=== PATIENT | female | born 1955 | race Caucasian/White ===

== ENCOUNTER → 2019-12-02 | Outpatient (CLI) | payer MEDICARE, OTHER ==
[2016-03-01 14:00] VITALS: BP 112/68
[~2019-12-02] MED LIST: ASPI325T8 PO; ATOR10TA60 PO; ESCITALOPRAM OX20 MG PO; ESTR1TAB44 PO; LISI10TA2 PO; OXYC1TAB20 PO; TRAZ-118 PO
--- NOTE | 2019-12-02 15:39 | KCIC ---
MRI Lumbar Spine without contrast History: Lumbar radiculopathy, bilateral radiculopathy in the morning for a couple of weeks Technique: Multiplanar, multi sequential noncontrast MR imaging was performed of the lumbar spine. Comparison: February 02, 2016 Findings: There is again advanced degenerative disc disease at L2-3, degenerative endplate change and endplate edema at this level likely reactive/degenerative in etiology. There is minimal edema of the anterior superior corner of L1. There is moderate L4-5 degenerative disc disease somewhat greater in the interval. Conus terminates at L1-2. Lumbar vertebral body stature is maintained. There is again grade 1 anterior spondylolisthesis L4-5. There has been left sacroplasty. L1-L2: This level was not included on the axial images. Neural foramina and spinal canal are adequate. L2-L3: There is a minimal disc osteophyte complex. There is mild buckling of the ligamentum flavum and facet degenerative change. There is very mild narrowing of the right neural foramen, shallow protrusion again near the undersurface of the exiting right L2 nerve root in the neural foramen and proximal extraforaminal region. Left neural foramen is adequate. Spinal canal is overall adequate. L3-L4: There is negligible posterior bulge. There is mild buckling of the ligamentum flavum and facet hypertrophic change. Spinal canal and neural foramina are overall adequate. L4-L5: There is again moderate to severe facet degenerative change and buckling of the ligamentum flavum. There is new synovial cyst in the right lateral recess located just above the intervertebral disc space level along the margin of the ligamentum flavum measuring about 0.5 cm transverse by 0.5 cm AP by about 1 cm CC. There is indentation upon the right lateral aspect of the thecal sac, contributes to moderate to severe narrowing of the right lateral recess from posteriorly. At the intervertebral disc space level, there is also somewhat increased mild to moderate narrowing of the far lateral recesses bilaterally and mild narrowing of the central canal. There is mild partial uncovering of the posterior aspect of the disc due to spondylolisthesis. There is minimal narrowing of the left neural foramen, [id number] narrowing greater distally on the right, partially uncovered posterior disc near the undersurface of exiting right L4 nerve root in the distal neural foramen. L5-S1: There is again moderate to severe facet degenerative change and mild buckling of the ligamentum flavum. There is now a synovial cyst along the right ligamentum flavum anteriorly without impingement upon the thecal sac, measures about 0.2 cm transverse by 0.8 cm CC by 0.2 cm AP. Spinal canal is overall adequate. There is mild narrowing of the right neural foramen greater distally due to facet. Left neural foramen is adequate. Impression: 1. There is now synovial cyst above the L4-5 intervertebral disc space level in the right lateral recess contributing to moderate to severe right lateral recess stenosis. There is somewhat increased mild to moderate narrowing of the far lateral recesses bilaterally at the L4-5 vertebral disc space level, grade 1 anterior spondylolisthesis at this level due to facet degenerative change. 2. There is mild to moderate narrowing of the right L4-5 neural foramen, minimal narrowing the right at L2-3 and L5-S1 as described. 3. There is advanced L2-3 and moderate L4-5 degenerative disc disease. Electronically signed by: Lamberto Hamlin MD (12/02/2019 3:35 PM) [id number]
== END ==
LOC: KCIC MRI 12:37
PROVIDERS: ATTEND Physician Assistant Medical
DX: M51.16 Intervertebral disc disorders with radiculopathy, lumbar region (principal); M43.16 Spondylolisthesis, lumbar region; M71.38 Other bursal cyst, other site; M48.07 Spinal stenosis, lumbosacral region; M25.78 Osteophyte, vertebrae
CPT/HCPCS: 72148

== ENCOUNTER → 2020-01-10 | Outpatient (CLI) | payer MEDICARE, OTHER ==
[2016-03-01 14:00] VITALS: BP 112/68
[~2020-01-10] MED LIST changes: +CYCL10TA2 PO; +IOHEXOL 180 MG/ML 10 ML VIAL. ONE; +methylPREDNISolone ACETATE 40 MG/ML VIAL. ONE; +methylPREDNISolone ACETATE 80 MG/ML VIAL. ONE
--- NOTE | 2020-01-10 12:42 | PDOC2 ---
INITIAL PAIN CONSULT DATE OF SERVICE: DOS: DATE: 01/10/20 TIME: 12:35 CHIEF COMPLAINT: Chief Complaint: Low back and bilateral lower extremity pain HISTORY OF PRESENT ILLNESS: 64-year-old female presents with history of pain low back bilateral lower extremities for about 4 weeks now with no specific injury or accident that she is aware of but coming up over time getting worse in the low back bilateral lower extremities posterior gluteus posterior lateral thigh lateral anterior thighs anterior medial thighs posterior calves to the ankles bilaterally. Patient reports is worse with getting out of bed in the morning, changing positions standing walking more than 20 to 30 minutes with no loss of motor function lower extremities but significant fatigability again worse on the left than the right. Patient scribes pain is shooting across the back radiating to the lower extremities as described changes during the day with activity intermittent intensity but always present. 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 Patient did have an MRI scan lumbar spine compared to a film from 2016 showing synovial cyst above the L4-5 intervertebral disc space level in the right lateral recess contributing moderate to severe right lateral recess stenosis somewhat increased mild to moderate narrowing the far lateral recesses bilaterally at the L4-5 vertebral to space level grade 1 anterior spondylolist hesis at this level due to facet degenerative change with mild to moderate narrowing the right L4-5 neural foramen minimal narrowing the right at L2-3 and L5-S1 with advanced L2-3 and moderate L4-5 degenerative disc disease. Patient reports no loss of motor function again but significant fatigability of the lower extremities with activity. PAST MEDICAL HISTORY: PMH: Arthritis, hypertension, skin cancers PREVIOUS SURGERIES: Past Surgical Hx: Bilateral total hip replacement 2012, cervical laminectomy 2003, benign breast cyst removed, kyphoplasty to left sacrum CURRENT MEDICATIONS: Current Meds: Active Scripts Medications Dose Route/Sig Max Daily Dose Days Date Category Cyclobenzaprine Hcl 10 Mg Tablet 1 Tab PO TID 01/10/20 Reported Aspirin 325 Mg Tablet 1 Tab PO PRN PRN 03/01/16 Reported Oxycodone-Acetaminophen 10-325 (Oxycodone Hcl/Acetaminophen) 1 Each Tablet 1 Each PO PRN Q6HRS PRN 03/01/16 Reported Estradiol-Noreth 1-0.5 Mg Tab (Estradiol/Norethindrone Acet) 1 Each Tablet 1 Each PO HS 03/01/16 Reported Escitalopram Oxalate 20 Mg Tablet 20 Mg PO HS 03/01/16 Reported Trazodone Hcl 50 Mg Tablet 1 Tab PO QHS 03/01/16 Reported Atorvastatin Calcium 10 Mg Tablet 10 Mg PO HS 03/01/16 Reported Lisinopril 10 Mg Tablet 1 Tab PO DAILY 03/01/16 Reported ALLERGIES; Allergies: Coded Allergies: adhesive tape (Verified Allergy, Unknown, 03/01/16) FAMILY HISTORY: Family Hx: Arthritis, hypertension, heart disease SOCIAL HISTORY: Social Hx: Patient drinks alcohol very infrequently does not smoke does not use any illegal illicit or recreational drugs is lives with her spouse is currently 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 REVIEW OF SYSTEMS: ROS: Positive for those items mentioned in history of present illness, all systems are reviewed, otherwise negative, is complete full and well-documented on patient's chart PHYSICAL EXAM: VS: Blood pressure is 118/76 pulse 94 respirations 18 temperature 98.8 F height is 5 feet 3 inches weight is 166 pounds PE: PHYSICAL EXAMINATION: GENERAL: The patient is awake, alert, oriented, appropriate, very pleasant demeanor HEENT: Shows normocephalic, atraumatic. Extraocular movements are intact and symmetrical. Oral cavity: Mucous membranes moist and pink. Dentition is intact. NECK: Shows anterior throat supple without palpable lymphadenopathy noted. Swallow reflex symmetrical. CHEST: Shows normal on inspection. Breath sounds are clear bilaterally, no rales rhonchi or wheezes auscultated. HEART: Shows S1, S2 clear. No murmurs auscultated. ABDOMEN: Soft, nontender, nondistended. No palpable organomegaly is noted. No rebound or guarding demonstrated. BACK: Shows spine grossly in the midline. Normal-appearing cervical lordotic curvature. There is slightly increased thoracic kyphosis, some minor flattening of the lumbar lordotic curvature. Lumbar paraspinous muscles show symmetrical on inspection, on palpation shows some moderate tenderness diffusely throughout the upper, middle and lower distribution of the paraspinous muscles bilaterally, but without specific trigger points, without radiation of pain. The patient has good rotational motion of the lumbar spine, both laterally as well as extension and flexion without significant difficulty. No tenderness over the spinous processes, sacrum or sacroiliac regions. EXTREMITIES: Lower extremities show deep tendon reflexes 2+ in the patellar and tendo calcaneus tendons. Motor exam is 5 on a scale of 5 with right dorsiflexion, extension, quadriceps and hamstring flexion and 5/5 on the left. Peripheral pulses are 1+ posterior tibial. No peripheral edema is noted bilaterally. Lower extremities are warm and dry to touch, equal in color and appearance. Straight leg raise noted to be negative bilaterally. Gaenslen's and Sridhar's maneuvers are negative as well. The patient is able to stand, stand on her toes without difficulty or loss of balance walks with a normal- appearing gait is not appear to favor the right or left lower extremity is not using any assistive devices to ambulate. SKIN: Shows warm and dry, good turgor. No edema. No sores, rashes or bruising throughout. IMPRESSION: Impression: 64-year-old female with approximate 1 month history of pain low back bilateral lower extremities and radicular fashion as noted MRI scan lumbar spine as noted History of arthritis Hypertension Plan: Options were discussed with the patient including conservative medical management physical therapies interventional techniques he like to pursue dimensional techniques. We discussed a lumbar epidural steroid injection using descriptions as well as anatomical models to describe the procedure. Risks were discussed including but not limited to: Bleeding, infection, possibility of epidural hematoma and subsequent neurological compromise, dural puncture, headaches, spinal cord and/or nerve damage, side effects of steroid medication, and poor results regarding pain control. Patient understands wished to proceed. Patient return to clinic in approximate 2 weeks for follow-up was counseled as to return appointment activity level and side effects to be aware of. Procedure is lumbar epidural steroid injection under local anesthetic using sterile prep and drape at the L4-5 level using C-arm fluoroscopic guidance in both AP and lateral views medications injected is 120 mg Depo-Medrol + 10 mL preservative-free normal saline and 2 mL contrast- condition at discharge is stable patient tolerated procedure well had no complications. ABHINAV SALINAS MD Jan 10, 2020 12:41
== END | disposition home or self-care (01) ==
LOC: PNCL 11:10
PROVIDERS: ATTEND Anesthesiology
DX: M54.5 Low back pain (principal); M79.662 Pain in left lower leg; M79.661 Pain in right lower leg; I10 Essential (primary) hypertension; M19.90 Unspecified osteoarthritis, unspecified site; Z96.643 Presence of artificial hip joint, bilateral; Z98.890 Other specified postprocedural states; Z85.828 Personal history of other malignant neoplasm of skin; Z82.49 Family history of ischemic heart disease and other diseases of the circulatory system; Z82.61 Family history of arthritis; Z88.8 Allergy status to other drugs, medicaments and biological substances; Z79.899 Other long term (current) drug therapy
CPT/HCPCS: 62323; J1030; J1040; Q9965

== ENCOUNTER → 2020-03-21 | Outpatient (CLI) | payer MEDICARE, OTHER ==
[2016-03-01 14:00] VITALS: BP 112/68
[~2020-03-21] MED LIST changes: -IOHEXOL 180 MG/ML 10 ML VIAL. ONE; -methylPREDNISolone ACETATE 40 MG/ML VIAL. ONE; -methylPREDNISolone ACETATE 80 MG/ML VIAL. ONE
--- NOTE | 2020-03-21 14:35 | RAD ---
Examination: 1. Ultrasound-guided left lower inner quadrant core needle breast biopsy (8:00 position 5 cm from the nipple) 2. Ultrasound-guided core needle superior left breast biopsy (12:00 position 4 cm from the nipple) COMPARISON: Left diagnostic mammogram and breast ultrasound of March 02, 2020, bilateral screening mammogram of February 16, 2020. TECHNIQUE: Informed consent was obtained and an appropriate procedural pause observed. Using standard sterile technique, ultrasound guidance and local anesthesia, multiple 14-gauge core biopsy samples of the lower inner quadrant left breast mass and subsequently the superior left breast mass were obtained and separately placed in formalin. During the diagnostic workup of 03/02/2020, a 4 mm cystic lesion was also identified at the 12:00 position 2 cm from nipple and suggested for aspiration. This was initially targeted and completely evacuated, revealing anaya-colored fluid of no more than 2 drops visible in the hub of the 18-gauge spinal needle used for aspiration. This fluid was discarded. Attention was then turned to the 12:00 position 4 cm from the nipple mass which was partly bounded at the lateral margin by an artery. Patient experienced significant discomfort with initial attempts at local anesthetic administration, even to the skin surface in this region so the first biopsy target sampled was the lower inner quadrant breast lesion which was less tender. 3 core biopsy samples of the mass at the 8:00 position 5 cm from the nipple were obtained and placed in formalin. An S-shaped biopsy marker was subsequently deployed and hemostasis ensured with direct breast compression for several minutes. Attention then turned to the 12:00 position left breast mass which was sampled along its deep margin following administration of additional local anesthesia using fresh sterile equipment and a carefully selected approach that avoided the artery along its lateral margin. Patient tolerated this without significant discomfort. An open padlock shaped biopsy marker was deployed and a postprocedure mammogram was obtained. The post procedure mammogram showed satisfactory deployment of both biopsy markers with no significant postbiopsy hematoma appreciated. Puncture sites were dressed and postprocedure instructions reviewed prior to patient discharge from imaging suite. IMPRESSION: Successful ultrasound-guided biopsy of 2 areas of suspicion in the left breast. Pathology results are pending. An addendum will be issued once pathology results become available. Electronically signed by: Lorie March MD (03/21/2020 2:32 PM) [id number]
--- NOTE | 2020-03-23 18:55 | PATHOLOGY ---
[facility] Accession Number: [id number] . 01 Material submitted: . PART A: breast - LEFT BREAST TISSUE, 8:00, 5CMFN. Modifiers: left, 8:00 PART B: breast - LEFT BREAST TISSUE, 12:00, 4 CMFN. Modifiers: left, 12:00 . 01 Clinical history: . 2 LEFT BREAST MASSES . 02 Diagnosis: A. Breast tissue, left breast mass 8:00 needle biopsies: - INVASIVE MAMMARY CARCINOMA WITH LOBULAR FEATURES. SEE COMMENT. . B. Breast tissue, left breast mass 12:00 needle biopsies: - INVASIVE MAMMARY CARCINOMA WITH LOBULAR FEATURES, FOCAL. . (JPM:paulette/mel; 03/23/2020) MBR 03/23/2020 1343 Local . 02 Comment: Sections of the left breast mass at 8:00 needle biopsy reveal an invasive mammary carcinoma. The tumor cells are present in solid nests and cords within a reactive desmoplastic stroma. Tumor cells show mild to focal moderate nuclear pleomorphism. Occasional mitotic figures are present. There are a few small ducts distended with relatively small uniform tumor cells. The invasive tumor measures up to 1.0 cm in greatest dimension. There is no lymphovascular tumor invasion. There are calcifications associated with invasive carcinoma and benign breast tissue. Immunoperoxidase stains for AE1/AE3 and E-cadherin are obtained and yield the following results: . AE1/AE3 (A1): Infiltrating tumor cells positive E-cadherin (A1): Infiltrating tumor cells largely negative AE1/AE3 (A3): Infiltrating tumor cells positive E-cadherin (A3): Infiltrating tumor cells largely negative . The morphologic and immunophenotypic findings are supportive of the diagnosis of an invasive mammary carcinoma with lobular features. Breast prognostic studies will be obtained on block A3, the results of which will be reported separately. . Sections of the left breast mass at 12:00 needle biopsy reveal a focal invasive mammary carcinoma having lobular features. Tumor cells are present in cords and occasional small nests within a fibrous stroma. The tumor cells are relatively small and uniform and show no significant nuclear atypia or mitotic activity. There appears to be focal atypical lobular hyperplasia/lobular carcinoma in situ within the area of invasive carcinoma. Invasive carcinoma measures up to 5-6 mm in greatest dimension. There is no lymphovascular tumor invasion. The remaining breast tissue shows fibrocystic changes with stromal fibrosis and duct ectasia. Immunoperoxidase stains for AE1/AE3 and E-cadherin are obtained on block B3 and yield the following results: . AE1/AE3 (B3): Infiltrating tumor cells positive E-cadherin (B3): Infiltrating tumor cells negative . The morphologic and immunophenotypic findings are supportive of the diagnosis of invasive mammary carcinoma with lobular features. . The case is also examined by Dr. Randolph, who concurs with the diagnoses. (JPM:ehs manager/mel; 03/23/2020) . Special stains performed: Immunoperoxidase stains for AE1/AE3 on A1, A3 and B3; E-cadherin on AE1/AE3 and B3. Breast prognostic studies will be obtained on block B3, the results of which will be reported separately. . . 02 Electronically signed: . Thanh David MD, Pathologist NPI- [id number] . 01 Gross description: . A. The specimen is received in formalin, labeled "Aninka Corona, left breast 8:00 5 cm from nipple". Received are multiple needle cores of fibrofatty tissue measuring 1.6 x 0.6 x 0.2 cm in aggregate dimensions. The specimen is submitted entirely in cassettes A1 through A3. The cold ischemic time is 1 minute. The total formalin fixation time is 12 hours. . B. The specimen is received in formalin, labeled "Annika Corona, left breast 12:00 4 cm from nipple". Received are multiple needle cores of fibrofatty tissue measuring 1.6 x 0.6 x 0.2 cm in aggregate dimensions. The specimen is submitted entirely in cassettes B1 through B3. The cold ischemic time is 2 minutes. The total formalin fixation time is 11 hours and 41 minutes. (CAA; 03/21/2020) QAC/QAC 03/21/[address] [place] [address] . 02 Pathologist provided ICD-10: C50.912 . 02 CPT . 680426, 857973, [id number], [id number] Specimen Comment: A courtesy copy of this report has been sent to [phone], [phone] Specimen Comment: [id number], Specimen Comment: Report sent to ,DR GASPAR / DR ACEVEDO Performed at: 01 [facility] [address] [place] [address] [address] [place] [id number] MD Roberto Carlos Chung MD Phone: [phone] Performed at: 02 [facility] [address] [place], [place] [id number] MD Thanh David MD Phone: [phone]
== END | disposition home or self-care (01) ==
LOC: US 08:51
PROVIDERS: ATTEND Surgery
DX: C50.912 Malignant neoplasm of unspecified site of left female breast (principal); N63.24 Unspecified lump in the left breast, lower inner quadrant; R92.8 Other abnormal and inconclusive findings on diagnostic imaging of breast
CPT/HCPCS: 19081; 19083; 19084; 77065; 88305; 88341; 88342; 88361; C1713; 76942

== ENCOUNTER → 2020-04-24 | Outpatient (CLI) | payer OTHER ==
[2016-03-01 14:00] VITALS: BP 112/68
[~2020-04-24] MED LIST changes: +LISI10TA16 PO; -LISI10TA2 PO
--- NOTE | 2020-04-24 13:08 | KCIC ---
EXAM: CT coronary artery calcium screening; radiologist over read. HISTORY: Chest pain. Hyperlipidemia. TECHNIQUE: Computed tomographic images of the chest were obtained without contrast. Multiplanar refor matting was performed. *One or more of the following individualized dose reduction techniques were utilized for this examina tion: 1. Automated exposure control. 2. Adjustment of the mA and/or kV according to patient size. 3. Use of iterative reconstruction technique. COMPARISON: None. FINDINGS: The heart is normal in size. The aorta is normal in caliber. There is no infiltrate, pleura l effusion or pneumothorax. There is no suspicious pulmonary nodule. There is no acute finding involv ing the upper abdomen or osseous structures. Coronary artery calcium score: Left main artery - 0 Left anterior descending - 0 Left circumflex - 0 Right coronary artery - 0 Posterior descending artery - 0 TOTAL = 0 IMPRESSION: 1. Coronary artery calcium score of 0. 2. No incidental thoracic finding. Electronically signed by: Carolina Roe MD (04/24/2020 1:06 PM) [id number]
== END ==
LOC: KCIC CT 12:23
PROVIDERS: ATTEND Physician Assistant Medical
DX: Z13.6 Encounter for screening for cardiovascular disorders (principal); E78.6 Lipoprotein deficiency; I10 Essential (primary) hypertension; Z86.79 Personal history of other diseases of the circulatory system
CPT/HCPCS: 75571

== ENCOUNTER → 2020-05-22 | Outpatient (CLI) | payer MEDICARE, OTHER ==
[2016-03-01 14:00] VITALS: BP 112/68
== END ==
LOC: LAB 10:39
PROVIDERS: ATTEND Internal Medicine Gastroenterology
DX: Z01.812 Encounter for preprocedural laboratory examination (principal); Z20.822 Contact with and (suspected) exposure to COVID-19
CPT/HCPCS: U0003

== ENCOUNTER → 2020-05-24 | Day surgery (SDC) | payer MEDICARE, OTHER ==
[~2020-05-24] MED LIST changes: +IV RINGERS,LACTATED 1000ML 1,000 ML IV SCH; +LIDOCAINE 2% PF 5 ML VIAL. ONE; +PROPOFOL 10 MG/ML (20ML) VIAL. IV ONE
--- NOTE | 2020-05-24 09:02 | CONS ---
DATE OF CONSULTATION: 05/24/2020 REFERRING PHYSICIAN: DEANA Diez REASON FOR CONSULTATION: Rectal bleeding. HISTORY OF PRESENT ILLNESS: A 64-year-old female with past medical history which is significant for hyperlipidemia, hypertension, is seen with a complaint of rectal bleeding. She has had some painless blood loss with and without defecation over the past fall. Weight and appetite are stable. Family history is unrevealing for colon cancer, colon polyps and she is otherwise without additional complaints. PAST MEDICAL HISTORY: Hypertension and hyperlipidemia. ALLERGIES: LATEX. MEDICATIONS: Include aspirin, atorvastatin, cyclobenzaprine, citalopram, estradiol, lisinopril, oxycodone, trazodone. FAMILY AND SOCIAL HISTORY: Nonsmoker. Social drinker. PAST SURGICAL HISTORY: Breast surgery, cholecystectomy. REVIEW OF SYSTEMS: Per records. PHYSICAL EXAMINATION: GENERAL: Reveals a well-nourished, well-developed female. VITAL SIGNS: Temperature is 98.4, pulse 91, respirations 20. LUNGS: Clear. CARDIOVASCULAR: Reveals an S1, S2 without S3, S4 or appreciable murmur. ABDOMEN: With a soft abdomen. Normal bowel sounds, without appreciable hepatosplenomegaly. EXTREMITIES: Reveals no cyanosis, clubbing or edema. IMPRESSION: Rectal bleeding, etiology is to be determined. Differential includes arteriovenous malformation, hemorrhoids, colon polyps, colon cancer, inflammatory bowel disease, and/or diverticular disease. Therefore, recommend colonoscopy to further assess. Risks and benefits have been previously discussed. The patient is willing to proceed. GILDARDO PAULINO MD DR: MERLE/jude JOB#: [id number] / [id number]
[2020-05-24 09:35] VITALS: BP 105/70
== END | disposition home or self-care (01) ==
LOC: ENDOS 07:30
PROVIDERS: ATTEND Internal Medicine Gastroenterology
DX: K62.5 Hemorrhage of anus and rectum (principal); K64.0 First degree hemorrhoids; I10 Essential (primary) hypertension; E78.5 Hyperlipidemia, unspecified; E78.00 Pure hypercholesterolemia, unspecified; F41.9 Anxiety disorder, unspecified; Z86.010 Personal history of colon polyps; Z90.49 Acquired absence of other specified parts of digestive tract; Z98.890 Other specified postprocedural states; Z79.899 Other long term (current) drug therapy; Z85.3 Personal history of malignant neoplasm of breast; Z88.8 Allergy status to other drugs, medicaments and biological substances; Z91.040 Latex allergy status
CPT/HCPCS: 45378; J2704

== ENCOUNTER → 2021-02-28 | Outpatient (CLI) | payer MEDICARE, OTHER ==
[2020-05-24 09:35] VITALS: BP 105/70
[~2021-02-28] MED LIST changes: +CYCL10TA19 PO; -CYCL10TA2 PO; -IV RINGERS,LACTATED 1000ML 1,000 ML IV SCH; -LIDOCAINE 2% PF 5 ML VIAL. ONE; -PROPOFOL 10 MG/ML (20ML) VIAL. IV ONE
--- NOTE | 2021-02-28 13:34 | KCIC ---
EXAMINATION: Magnetic resonance imaging (MRI) of the cervical spine without contrast 02/28/2021 11:45 AM HISTORY: Cervicalgia TECHNIQUE: Multiplanar multi-weighted MRI of the cervical spine was performed without intravenous con trast using the standard cervical spine protocol. Contrast information: None administered COMPARISON: None available. FINDINGS: There is 2 mm retrolisthesis of C5 on C6. Anterior cervical discectomy and fusion identified at C6-C7 . Vertebral bodies demonstrate normal signal intensity on all sequences. No acute fracture is identi fied; however, if trauma is suspected, a CT scan would be a more sensitive examination for fractures. The craniocervical junction is normal. The visualized portions of the skull base and the posterior fossa are normal. The spinal cord demonstrates normal signal intensity on all sequences. Disc pérez ccation at all levels of the cervical spine. Mild disc height loss at C5-C6 and C7-T1. No soft tissue abnormality is identified. Normal signal voids are present in the vertebral arteries. C2-C3: The disk is normal in configuration. There is no facet arthropathy. There is no uncovertebral joint disease. There is no neuroforaminal stenosis. There is no spinal canal stenosis. C3-C4: Mild disc bulge with central disc protrusion. There is no facet arthropathy. There is no unco vertebral joint disease. There is no neuroforaminal stenosis. There is no spinal canal stenosis. C4-C5: Mild disc bulge with central disc protrusion. There is mild facet arthropathy. There is mild uncovertebral joint disease. There is mild neuroforaminal stenosis. There is mild spinal canal stenos is, exacerbated by ligamentum flavum infolding. No cord compression or cord signal alteration. C5-C6: There is a posterior discussed by complex with central disc extrusion. Mild to moderate facet arthropathy. Mild uncovertebral joint disease. Moderate right and mild to moderate left foraminal andres nosis. Moderate spinal canal stenosis with mild deformity of the cord without cord signal alteration. C6-C7: This level is fused. Mild facet arthropathy. Moderate vertebral joint disease. Moderate bilate ral neuroforaminal stenosis. No significant spinal canal stenosis. C7-T1: There is a posterior discussed by complex. Mild facet arthropathy. Mild bilateral neuroforamin al stenosis, left or the right. Mild spinal canal stenosis without deformity of the cord or cord sign al alteration. IMPRESSION: Anterior cervical discectomy and fusion hardware identified at C6-C7 with mild degenerative changes o f the cervical spine as described in detail above. Electronically signed by: Ani Stark MD (02/28/2021 1:31 PM) LEONARDO
== END ==
LOC: KCIC MRI 10:55
PROVIDERS: ATTEND Physician Assistant Medical
DX: M47.812 Spondylosis without myelopathy or radiculopathy, cervical region (principal); M50.21 Other cervical disc displacement, high cervical region; M48.8X3 Other specified spondylopathies, cervicothoracic region; M48.03 Spinal stenosis, cervicothoracic region; Z98.1 Arthrodesis status
CPT/HCPCS: 72141